=== PATIENT | female | born 1995 | race Two or more races ===

== ENCOUNTER → 2024-10-22 | Outpatient (CLI) | payer MEDICAID, SELFPAY ==
--- NOTE | 2024-10-22 11:59 | XR_ITS ---
Examination: Breast ultrasound, unilateral, right complete Date and time of exam: October 22, 2024 1209 hours INDICATIONS: Patient states palpable lump outer right breast 9 years Technique: Real-time draper scale ultrasonographic imaging performed right breast including all 4 quadrants as well as nipple retroareolar and axillary region. Findings: 10:00 oval mass lobular margins 2.9 x 1.9 x 1.9 cm partially indistinct margins IMPRESSION: BI-RADS Category 4: Suspicious for malignancy Suspicious mass 10:00 position right breast Biopsy is needed to exclude breast carcinoma This mass is amenable to ultrasound-guided breast biopsy for diagnosis
== END | disposition home or self-care (01) ==
PROVIDERS: Referring Provider Nurse Practitioner Family; Visit Provider Nurse Practitioner Family
DX: Z12.39 Encounter for other screening for malignant neoplasm of breast (principal); N63.11 Unspecified lump in the right breast, upper outer quadrant
CPT/HCPCS: 76641